=== PATIENT | female | born 1990 | race Caucasian/White ===

== ENCOUNTER → 2023-12-30 09:58 | Outpatient (REF) | payer BC, SELFPAY | LOC: PNTC 09:58 | PROVIDERS: ATTENDING PHYSICIAN Obstetrics & Gynecology | DX: Z36.8A Encounter for antenatal screening for other genetic defects (principal) | CPT/HCPCS: 36415 ==

== ENCOUNTER → 2024-01-29 14:54 | Outpatient (REF) | payer BC, SELFPAY | LOC: REG 14:54 | PROVIDERS: ATTENDING PHYSICIAN Obstetrics & Gynecology | DX: Z34.90 Encounter for supervision of normal pregnancy, unspecified, unspecified trimester (principal) | CPT/HCPCS: 36415; 82105 ==

== ENCOUNTER 2024-07-03 12:53 | Inpatient (IN) | payer BC, SELFPAY ==
[2024-07-03 13:10] VITALS: BP 111/61; BMI 33.5
[2024-07-03 14:01] LABS: % Basophils 0.4 % (0-2); % Eosinophils 1.6 % (0-6); % Immature Granulocytes 0.4 % (0-0.5); % Lymphocytes 12.6 % (20.5-51.1); % Monocytes 8.8 % (1.7-9.3); % Neutrophils 76.2 % (42.2-75.2); Absolute Eosinophils 0.2 10^3/uL (0-0.7); Absolute Lymphocytes 1.3 10^3/uL (1.2-3.4); Absolute Monocytes 0.9 10^3/uL (0.1-0.6); Absolute Neutrophils 7.6 10^3/uL (1.4-6.5); Hematocrit 30.9 % (37.0-47.0); Hemoglobin 10.2 g/dL (12.0-16.0); Mean Corpuscular Hgb 25.8 pg (27.0-31.0); Mean Platelet Volume 9.9 fL (7.4-10.4); Nucleated Red Blood Cells % 0 %; Platelet Count 234 10^3/uL (130-400); Red Blood Cell Count 3.96 10^6/uL (4.20-5.40)
[2024-07-03] MEDS: LR 1000 IV (23:13)
[2024-07-03] MEDS: SUBLIMAZE 100 MCG EPIDURAL (23:52)
[2024-07-03] MEDS: FENTANYL/BUPIVACAINE 100 EPIDURAL (23:53)
[2024-07-04] MEDS: LR 1000 IV ×3 (00:20→07:51)
[2024-07-04] MEDS: FENTANYL/BUPIVACAINE 100 EPIDURAL ×2 (07:49→15:28)
[2024-07-04] MEDS: PITOCIN 30 UNITS/NSS 500 ML IV ×2 (08:00→16:04)
[2024-07-04] MEDS: XYLOCAINE-MPF 1% VIAL 30 ML INFIL (16:14)
[2024-07-04] MEDS: TYLENOL 650 MG PO (20:20)
[2024-07-05] MEDS: DILAUDID 2 MG PO ×3 (02:20→22:11)
[2024-07-05] MEDS: TYLENOL 650 MG PO ×2 (05:28→08:44)
[2024-07-05 05:31] LABS: Hematocrit 26.6 % (37.0-47.0); Hemoglobin 8.9 g/dL (12.0-16.0)
[2024-07-05] MEDS: SENOKOT-S 1 TABLET PO (08:44)
[2024-07-05] MEDS: PRENATAL PLUS 1 TABLET PO (08:44)
[2024-07-05 11:18] LABS: Syphilis/T. pallidum Ab Reflex Negative (Negative)
[2024-07-05] MEDS: FEOSOL 325 MG PO (16:30)
[2024-07-06] MEDS: DILAUDID 2 MG PO ×2 (02:15→08:30)
[2024-07-06] MEDS: FEOSOL 325 MG PO (08:31)
[2024-07-06] MEDS: PRENATAL PLUS 1 TABLET PO (08:31)
[2024-07-06] MEDS: SENOKOT-S 1 TABLET PO (08:38)
== END 2024-07-06 11:15 | disposition home or self-care (01) | DRG 768 ==
LOC: LDRP 12:53
PROVIDERS: Obstetrics & Gynecology; ADMITTING PHYSICIAN Obstetrics & Gynecology; ATTENDING PHYSICIAN Obstetrics & Gynecology; FAMILY PHYSICIAN Family Medicine
PROC: 0DQR0ZZ Repair Anal Sphincter, Open Approach (ICD-10-PCS; 2024-07-04)
PROC: 3E033VJ Introduction of Other Hormone into Peripheral Vein, Percutaneous Approach (ICD-10-PCS; 2024-07-04)
PROC: 10E0XZZ Delivery of Products of Conception, External Approach (ICD-10-PCS; 2024-07-04)
PROC: 10907ZC Drainage of Amniotic Fluid, Therapeutic from Products of Conception, Via Natural or Artificial Opening (ICD-10-PCS; 2024-07-04)
DX: O77.0 Labor and delivery complicated by meconium in amniotic fluid (principal); Z37.0 Single live birth; O70.20 Third degree perineal laceration during delivery, unspecified; O76 Abnormality in fetal heart rate and rhythm complicating labor and delivery; Z3A.39 39 weeks gestation of pregnancy; O90.81 Anemia of the puerperium; D64.9 Anemia, unspecified
CPT/HCPCS: 88307; 36415; 85014; 85018; 85025; 86780; 86850; 86900; 86901